=== PATIENT | male | born 1970 | race Caucasian/White ===

== ENCOUNTER 2017-11-14 21:17 | Inpatient (IN) | payer MEDICAID ==
[~2017-11-14] VITALS: Ht 190.5 cm; Wt 104.5 kg
[~2017-11-14 21:17] MED LIST: METF500T PO; METF500T3 PO; ONDA4TAB6 PO; PANT40TA4 PO; RANI300T7 PO; temazepam 15mg capsule PO PRN
[2017-11-14] MEDS ORDERED: normal saline 1000ml 1,000 ML IV ONE (21:37)
[2017-11-14] MEDS ORDERED: normal saline 1000ML IV soln IVB ONE ×2 (21:40→22:45)
[2017-11-14 22:16] LABS: ABG HCO3 27.2 mmol/L (22.0-26.0); ABG OXYGEN SATURATION 94.7 % (95-98); ABG PCO2 (T) 35.9 mmHg (35.0-48.0); ABG PH (T) 7.495 (7.350-7.450); ALLEN'S TEST Positive; FCOHb 0.1 % (0.5-1.5); FMetHb 0.2 % (0.3-1.12); FO2Hb 94.4 % (94-100); PATIENT TEMPERATURE 36.5; RESPIRATORY RATE (OBSERVED) 16 b/min; TOTAL HEMOGLOBIN 19.3 G/dl (14.0-18.0)
[2017-11-14 22:44] LABS: BASOPHILS % (AUTO) 0.1 % (0-1); EOSINOPHILS % (AUTO) 0.1 % (0-6); HEMATOCRIT 56.2 % (42.0-52.0); LYMPHOCYTES % (AUTO) 11.3 % (21-51); MEAN CORPUSCULAR HGB CONC 33.6 % (33.0-36.5); MEAN CORPUSCULAR VOLUME 86.3 FL (78-98); MEAN PLATELET VOLUME 8.2 FL (7.4-10.4); MONOCYTES # (AUTO) 0.3 X10'3 (0-0.9); NEUTROPHILS # (AUTO) 7.3 X10'3 (1.8-7.7); NEUTROPHILS % (AUTO) 84.5 % (42-75); PLATELET COUNT 289 X10'3 (140-440); RED BLOOD COUNT 6.51 X10'6 (4.70-6.10); RED CELL DISTRIBUTION WIDTH 13.1 % (11.5-14.5); WHITE BLOOD COUNT 8.6 X10'3 (4.5-11.0)
[2017-11-14 22:45] LABS: HEMOGLOBIN 18.9 g/dl (14.0-17.9)
[2017-11-14] MEDS ORDERED: morphine 2 MG/ML inj. syringe IV ONE (22:45)
[2017-11-14] MEDS ORDERED: LORazepam 2 mg/ml vial IV ONE ×2 (22:45→23:30)
[2017-11-14 22:49] LABS: CLARITY,URINE CLEAR (Clear); GLUCOSE, URINE 250 mg/dl (Neg); KETONES,URINE 40 mg/dl (Neg); LEUKOCYTE ESTERASE ,URINE NEGATIVE (Neg); NITRITES, URINE NEGATIVE (Neg); OCCULT BLOOD,URINE NEGATIVE (Neg); PROTEIN,URINE 100 mg/dl (Neg)
[2017-11-14] MEDS ORDERED: morphine 5 MG/ML injection IV ONE (22:50)
[2017-11-14 22:58] LABS: COLOR,URINE DARK YELLOW (Yellow); UA COLLECTION TYPE CLN CATCH MIDSTREAM
[2017-11-14 23:02] LABS: ALANINE AMINOTRANSFERASE 35 U/L (12-78); ALBUMIN 3.8 G/DL (3.4-5.0); ALBUMIN/GLOBULIN RATIO 0.7 (1.1-1.5); ALKALINE PHOSPHATASE 173 IU/L (46-116); ANION GAP 12 (8-16); BILIRUBIN,TOTAL 1.4 MG/DL (0.1-1.0); BLOOD UREA NITROGEN 31 MG/DL (7-18); BUN/CREATININE RATIO 19.4 (5.4-32.0); CALCIUM 9.5 MG/DL (8.5-10.1); CHLORIDE 92 MMOL/L (99-107); GLUCOSE 316 MG/DL (70-104); MAGNESIUM 1.6 MG/DL (1.5-2.4); SODIUM 135 MMOL/L (135-145); TOTAL CARBON DIOXIDE 31.5 MMOL/L (24-32); TOTAL PROTEIN 8.9 G/DL (6.4-8.2); eGFR 46 ML/MIN
[2017-11-14 23:03] LABS: ASPARTATE AMINO TRANSFERASE 26 U/L (10-37); ETHANOL < 0.010 GM/DL (0.0-0.010); POTASSIUM 4.2 MMOL/L (3.5-5.1)
[2017-11-14 23:03] LABS: URINE AMPHETAMINE SCREEN POSITIVE (Neg); URINE BARBITUATE SCREEN NEGATIVE (Neg); URINE BENZODIAZEPINES SCREEN NEGATIVE (Neg); URINE CANNABINOID SCREEN POSITIVE (Neg); URINE COCAINE SCREEN NEGATIVE (Neg); URINE METHADONE SCREEN NEGATIVE (Neg); URINE OPIATE SCREEN NEGATIVE (Neg); URINE PHENCYCLIDINE SCREEN NEGATIVE (Neg)
[2017-11-14 23:06] LABS: BACTERIA,URINE FEW /HPF (Neg); MUCUS STRANDS MANY /LPF (Neg); RBC,URINE 0-2 /HPF (0-2); SQUAMOUS EPITHELIAL CELL,UR FEW /LPF (FEW); WBC,URINE NONE SEEN /HPF (0-4); YEAST FEW /HPF (NEGATIVE)
[2017-11-14] MEDS ORDERED: normal saline 1000ML IV soln IV ONE (23:30)
[2017-11-14 23:31] LABS: PARTIAL THROMBOPLASTIN TIME 23 SECONDS (22-32); PROTHROMBIN TIME 10.4 SECONDS (9.0-12.0)
[2017-11-14] MEDS ORDERED: potassium Cl 20 mEq SR tablet PO PRN ×2 (23:40)
[2017-11-14] MEDS ORDERED: potassium Cl 40MEQ/NS 500ml 500 ML IV PRN ×2 (23:40)
[2017-11-14] MEDS ORDERED: acetaminophen 325mg tablet PO PRN (23:40)
[2017-11-14] MEDS ORDERED: magnesium hydroxide 30ml (MOM) UD suspension PO PRN (23:40)
[2017-11-14] MEDS ORDERED: magnesium 2GM in 50ml NS 50 ML IV PRN (23:40)
[2017-11-14] MEDS ORDERED: mag hydrox/Alum hydrox/simeth 30ml oral suspension PO PRN (23:40)
[2017-11-14] MEDS ORDERED: pantoprazole 40 MG vial IV ONE (23:40)
[2017-11-14] MEDS ORDERED: magnesium 4gm in 100ml NS 100 ML IV PRN (23:40)
[2017-11-14 23:49] LABS: GASTRIC OCCULT BLOOD POSITIVE (Neg)
[2017-11-15 00:18] LABS: HEMOGLOBIN A1C 7.6 % (4.5-6.2)
[2017-11-15] MEDS: pantoprazole 40MG/NS 100ML BAG 100 ML IV SCH ×6 (00:52→23:22)
[2017-11-15] MEDS: normal saline 1000ml 1,000 ML IV SCH ×3 (00:52→23:22)
[2017-11-15 03:00] VITALS: BP 123/88
[2017-11-15 06:00] VITALS: BP 112/75
[2017-11-15 06:05] LABS: BASOPHILS % (AUTO) 0.1 % (0-1); EOSINOPHILS % (AUTO) 0.4 % (0-6); HEMOGLOBIN 16.2 g/dl (14.0-17.9); LYMPHOCYTES # (AUTO) 0.5 X10'3 (1.1-4.8); LYMPHOCYTES % (AUTO) 7.2 % (21-51); MEAN CORPUSCULAR HEMOGLOBIN 29.8 PG (27.0-31.0); MEAN CORPUSCULAR HGB CONC 35.2 % (33.0-36.5); MEAN CORPUSCULAR VOLUME 84.6 FL (78-98); MEAN PLATELET VOLUME 8.5 FL (7.4-10.4); MONOCYTES # (AUTO) 0.5 X10'3 (0-0.9); MONOCYTES % (AUTO) 7.6 % (2-12); NEUTROPHILS # (AUTO) 5.8 X10'3 (1.8-7.7); NEUTROPHILS % (AUTO) 84.7 % (42-75); PLATELET COUNT 249 X10'3 (140-440); RED BLOOD COUNT 5.43 X10'6 (4.70-6.10); RED CELL DISTRIBUTION WIDTH 13.7 % (11.5-14.5); WHITE BLOOD COUNT 6.9 X10'3 (4.5-11.0)
[2017-11-15 07:24] LABS: ALANINE AMINOTRANSFERASE 27 U/L (12-78); ALBUMIN 2.6 G/DL (3.4-5.0); ALBUMIN/GLOBULIN RATIO 0.7 (1.1-1.5); ALKALINE PHOSPHATASE 112 IU/L (46-116); ANION GAP 13 (8-16); ASPARTATE AMINO TRANSFERASE 16 U/L (10-37); BILIRUBIN,TOTAL 1.3 MG/DL (0.1-1.0); BLOOD UREA NITROGEN 28 MG/DL (7-18); BUN/CREATININE RATIO 25.5 (5.4-32.0); CALCIUM 7.9 MG/DL (8.5-10.1); CHLORIDE 101 MMOL/L (99-107); GLUCOSE 241 MG/DL (70-104); MAGNESIUM 1.3 MG/DL (1.5-2.4); SODIUM 138 MMOL/L (135-145); TOTAL PROTEIN 6.6 G/DL (6.4-8.2); eGFR 71 ML/MIN
[2017-11-15] MEDS ORDERED: pantoprazole 40mg Tablet.DR PO SCH (08:00)
[2017-11-15] MEDS ORDERED: RANITIDINE HCL 300 MG PO SCH (08:00)
[2017-11-15] MEDS ORDERED: oseltamivir phos 75mg capsule PO SCH (08:00)
[2017-11-15 08:04] LABS: MICROCYTOSIS 1+; PLATELET ESTIMATE NORMAL; TOTAL CELLS COUNTED 100
[2017-11-15] MEDS: famotidine 20mg tablet PO SCH (08:24)
[2017-11-15] MEDS: heparin, porcine 5000 units/ml vial SQ SCH ×2 (08:25→19:09)
[2017-11-15] MEDS: K and/or MAG REPLACEMENT MC SCH (08:38)
[2017-11-15] MEDS ORDERED: MESSAGE TO PHARMACY PO ONE (08:45)
[2017-11-15] MEDS ORDERED: glucagon, human recombinant 1mg kit SUBCUT PRN (08:45)
[2017-11-15] MEDS ORDERED: dextrose ORAL solution 15 GM/59 ML bottle PO PRN ×2 (08:45)
[2017-11-15] MEDS ORDERED: dextrose 50%-water 50ml dispensing syringe IV PRN ×2 (08:45)
[2017-11-15] MEDS: magnesium Cl slow-release 64mg tablet PO PRN ×2 (09:11→21:27)
[2017-11-15] MEDS: insulin Lispro (HumaLOG) vial - multi-dose SQ SCH ×3 (09:15→19:04)
[2017-11-15] MEDS: HYDROcodone/acetaminophen 5mg/325mg tablet PO PRN (10:00)
[2017-11-15 11:00] VITALS: BP 138/90
[2017-11-15 14:24] LABS: BASOPHILS % (AUTO) 0.1 % (0-1); EOSINOPHILS % (AUTO) 0 % (0-6); HEMATOCRIT 48.1 % (42.0-52.0); HEMOGLOBIN 16.3 g/dl (14.0-17.9); LYMPHOCYTES # (AUTO) 0.7 X10'3 (1.1-4.8); LYMPHOCYTES % (AUTO) 7.2 % (21-51); MEAN CORPUSCULAR HEMOGLOBIN 29.1 PG (27.0-31.0); MEAN CORPUSCULAR HGB CONC 33.8 % (33.0-36.5); MEAN CORPUSCULAR VOLUME 86.3 FL (78-98); MEAN PLATELET VOLUME 8.3 FL (7.4-10.4); MONOCYTES # (AUTO) 0.3 X10'3 (0-0.9); MONOCYTES % (AUTO) 3.2 % (2-12); NEUTROPHILS # (AUTO) 8.8 X10'3 (1.8-7.7); NEUTROPHILS % (AUTO) 89.5 % (42-75); PLATELET COUNT 245 X10'3 (140-440); RED BLOOD COUNT 5.58 X10'6 (4.70-6.10); RED CELL DISTRIBUTION WIDTH 13.9 % (11.5-14.5); WHITE BLOOD COUNT 9.8 X10'3 (4.5-11.0)
[2017-11-15 15:00] VITALS: BP 136/87
[2017-11-15 18:30] VITALS: BP 121/84
[2017-11-15] MEDS: ondansetron/PF 4mg/2ml inj IV PRN (19:09)
[2017-11-15] MEDS ORDERED: insulin glargine (Lantus) pen - multi-dose SQ SCH (21:00)
[2017-11-15 22:00] VITALS: BP 122/78
[2017-11-16 02:00] VITALS: BP 125/80
[2017-11-16] MEDS: ondansetron/PF 4mg/2ml inj IV PRN (02:54)
[2017-11-16] MEDS: HYDROcodone/acetaminophen 5mg/325mg tablet PO PRN ×2 (03:01→10:50)
[2017-11-16] MEDS: pantoprazole 40MG/NS 100ML BAG 100 ML IV SCH ×2 (05:04→11:00)
[2017-11-16 06:00] VITALS: BP 125/86
[2017-11-16 06:04] LABS: BASOPHILS % (AUTO) 0.2 % (0-1); EOSINOPHILS # (AUTO) 0.2 X10'3 (0-0.9); EOSINOPHILS % (AUTO) 1.6 % (0-6); HEMATOCRIT 41.1 % (42.0-52.0); HEMOGLOBIN 14.2 g/dl (14.0-17.9); LYMPHOCYTES # (AUTO) 0.7 X10'3 (1.1-4.8); LYMPHOCYTES % (AUTO) 6.1 % (21-51); MEAN CORPUSCULAR HEMOGLOBIN 29.7 PG (27.0-31.0); MEAN CORPUSCULAR HGB CONC 34.6 % (33.0-36.5); MEAN CORPUSCULAR VOLUME 85.8 FL (78-98); MEAN PLATELET VOLUME 8.6 FL (7.4-10.4); MONOCYTES # (AUTO) 0.9 X10'3 (0-0.9); MONOCYTES % (AUTO) 7.3 % (2-12); NEUTROPHILS # (AUTO) 10.4 X10'3 (1.8-7.7); NEUTROPHILS % (AUTO) 84.8 % (42-75); PLATELET COUNT 205 X10'3 (140-440); RED BLOOD COUNT 4.79 X10'6 (4.70-6.10); RED CELL DISTRIBUTION WIDTH 13.5 % (11.5-14.5); WHITE BLOOD COUNT 12.3 X10'3 (4.5-11.0)
[2017-11-16 06:30] LABS: ALANINE AMINOTRANSFERASE 16 U/L (12-78); ALBUMIN 1.9 G/DL (3.4-5.0); ALBUMIN/GLOBULIN RATIO 0.5 (1.1-1.5); ALKALINE PHOSPHATASE 83 IU/L (46-116); ANION GAP 9 (8-16); ASPARTATE AMINO TRANSFERASE 13 U/L (10-37); BLOOD UREA NITROGEN 21 MG/DL (7-18); CALCIUM 7.9 MG/DL (8.5-10.1); CHLORIDE 100 MMOL/L (99-107); GLUCOSE 188 MG/DL (70-104); MAGNESIUM 1.7 MG/DL (1.5-2.4); POTASSIUM 4.7 MMOL/L (3.5-5.1); SODIUM 133 MMOL/L (135-145); TOTAL PROTEIN 5.8 G/DL (6.4-8.2); eGFR 80 ML/MIN
[2017-11-16] MEDS: K and/or MAG REPLACEMENT MC SCH (08:00)
[2017-11-16] MEDS: heparin, porcine 5000 units/ml vial SQ SCH (08:20)
[2017-11-16] MEDS: famotidine 20mg tablet PO SCH (08:21)
[2017-11-16] MEDS: insulin Lispro (HumaLOG) vial - multi-dose SQ SCH (08:26)
[2017-11-16] MEDS ORDERED: METR500T4 PO (10:23)
[2017-11-16 11:00] VITALS: BP 124/82
[2017-11-16] MEDS ORDERED: METO25TA6 PO (12:09)
== END 2017-11-16 13:39 | disposition home or self-care (01) | DRG 253 ==
LOC: ER 21:18 → ED HOLD 23:38 → PCU 3S 11-15 02:30
PROVIDERS: ADMIT Internal Medicine; ATTEND Internal Medicine
DX: K92.2 Gastrointestinal hemorrhage, unspecified (principal); N17.9 Acute kidney failure, unspecified; E87.2 Acidosis; D75.1 Secondary polycythemia; E11.65 Type 2 diabetes mellitus with hyperglycemia; K52.9 Noninfective gastroenteritis and colitis, unspecified; E86.0 Dehydration; F15.10 Other stimulant abuse, uncomplicated; K21.9 Gastro-esophageal reflux disease without esophagitis; Z88.0 Allergy status to penicillin; Z79.84 Long term (current) use of oral hypoglycemic drugs; Z79.899 Other long term (current) drug therapy; Z87.891 Personal history of nicotine dependence; Z83.3 Family history of diabetes mellitus
CPT/HCPCS: 36415; 36600; 71045; 80053; 80305; 80320; 81001; 82271; 82803; 82948; 83036; 83605; 83690; 83735; 83874; 84145; 84443; 84484; 85018; 85025; 85610; 85730; 87040; 87070; 87502; 87503; 93005; 96361; 96374; 96375; 99291; C9113; J1644; J1815; J2060; J2405; J7030

== ENCOUNTER 2017-12-18 11:03 | Outpatient (CLI) | payer MEDICAID ==
[~2017-12-18 11:03] MED LIST changes: +GLIM1TAB46 PO; +LEVO500T2 PO; -METF500T PO; -ONDA4TAB6 PO; -PANT40TA4 PO; +PER10325T PO; -RANI300T7 PO; -temazepam 15mg capsule PO PRN
== END 2017-12-18 23:59 | disposition home or self-care (01) ==
LOC: RAD 11:03 → CAR 23:59
PROVIDERS: ATTEND Surgery
DX: R94.31 Abnormal electrocardiogram [ECG] [EKG] (principal); I48.91 Unspecified atrial fibrillation; R00.0 Tachycardia, unspecified
CPT/HCPCS: 93005

== ENCOUNTER 2018-11-25 15:45 | Emergency (ER) | payer MEDICAID ==
[~2018-11-25] VITALS: Ht 190.5 cm; Wt 102.9 kg
[~2018-11-25 15:45] MED LIST changes: -LEVO500T2 PO
[2018-11-25 16:22] VITALS: BP 124/87
[2018-11-25 16:52] LABS: BASOPHILS % (AUTO) 0 % (0-1); EOSINOPHILS % (AUTO) 0 % (0-6); HEMATOCRIT 37.4 % (42.0-52.0); HEMOGLOBIN 12.4 g/dl (14.0-17.9); LYMPHOCYTES # (AUTO) 1.6 X10'3 (1.1-4.8); LYMPHOCYTES % (AUTO) 9.6 % (21-51); MEAN CORPUSCULAR HEMOGLOBIN 27.3 PG (27.0-31.0); MEAN CORPUSCULAR HGB CONC 33.2 g/dL (33.0-36.5); MEAN CORPUSCULAR VOLUME 82.1 FL (78-98); MONOCYTES # (AUTO) 0.4 X10'3 (0-0.9); MONOCYTES % (AUTO) 2.1 % (2-12); NEUTROPHILS # (AUTO) 15.1 X10'3 (1.8-7.7); NEUTROPHILS % (AUTO) 88.3 % (42-75); PLATELET COUNT 408 X10'3 (140-440); RED BLOOD COUNT 4.56 X10'6 (4.70-6.10); RED CELL DISTRIBUTION WIDTH 14.9 % (11.5-14.5); WHITE BLOOD COUNT 17.1 X10'3 (4.5-11.0)
[2018-11-25 17:06] LABS: ALANINE AMINOTRANSFERASE 18 U/L (12-78); ALBUMIN 2.4 G/DL (3.4-5.0); ALBUMIN/GLOBULIN RATIO 0.4 (1.1-1.5); ALKALINE PHOSPHATASE 171 IU/L (46-116); ANION GAP 14 (8-16); ASPARTATE AMINO TRANSFERASE 16 U/L (10-37); BILIRUBIN,TOTAL 0.4 MG/DL (0.1-1.0); BLOOD UREA NITROGEN 15 MG/DL (7-18); BUN/CREATININE RATIO 13.8 (5.4-32.0); CALCIUM 9.3 MG/DL (8.5-10.1); CHLORIDE 91 MMOL/L (99-107); CREATININE 1.09 MG/DL (0.60-1.10); GLUCOSE 388 MG/DL (70-104); POTASSIUM 3.8 MMOL/L (3.5-5.1); SODIUM 128 MMOL/L (135-145); TOTAL CARBON DIOXIDE 22.7 MMOL/L (24-32); TOTAL PROTEIN 8.8 G/DL (6.4-8.2); eGFR 72 ML/MIN
[2018-11-25] MEDS ORDERED: NAPR-56 PO (18:08)
[2018-11-25] MEDS ORDERED: LIDO700A32 TP (18:08)
[2018-11-25 18:22] LABS: ETHANOL < 0.010 GM/DL (0.0-0.010); LIPASE 149 U/L (73-393)
== END 2018-11-25 18:17 | disposition home or self-care (01) ==
LOC: ER 15:45
DX: R07.89 Other chest pain (principal); R07.81 Pleurodynia; E11.9 Type 2 diabetes mellitus without complications; F15.90 Other stimulant use, unspecified, uncomplicated; Z88.0 Allergy status to penicillin
CPT/HCPCS: 36415; 71045; 80053; 80320; 83690; 85025; 93005; 99284

== ENCOUNTER 2018-12-02 19:05 | Emergency (ER) | payer MEDICAID ==
[~2018-12-02] VITALS: Ht 190.5 cm; Wt 109.0 kg
[~2018-12-02 19:05] MED LIST changes: +LIDO700A32 TP; +NAPR-56 PO
[2018-12-02 19:54] LABS: BASOPHILS % (AUTO) 0.4 % (0-1); EOSINOPHILS # (AUTO) 0.1 X10'3 (0-0.9); EOSINOPHILS % (AUTO) 0.5 % (0-6); HEMATOCRIT 34.5 % (42.0-52.0); HEMOGLOBIN 11.3 g/dl (14.0-17.9); LYMPHOCYTES # (AUTO) 1.4 X10'3 (1.1-4.8); LYMPHOCYTES % (AUTO) 12.3 % (21-51); MEAN CORPUSCULAR HEMOGLOBIN 26.5 PG (27.0-31.0); MEAN CORPUSCULAR HGB CONC 32.8 g/dL (33.0-36.5); MEAN CORPUSCULAR VOLUME 80.9 FL (78-98); MEAN PLATELET VOLUME 7.3 FL (7.4-10.4); MONOCYTES # (AUTO) 0.9 X10'3 (0-0.9); MONOCYTES % (AUTO) 7.8 % (2-12); NEUTROPHILS # (AUTO) 9.1 X10'3 (1.8-7.7); PLATELET COUNT 530 X10'3 (140-440); RED BLOOD COUNT 4.27 X10'6 (4.70-6.10); RED CELL DISTRIBUTION WIDTH 15.3 % (11.5-14.5); WHITE BLOOD COUNT 11.5 X10'3 (4.5-11.0)
[2018-12-02] MEDS ORDERED: GLYB1.253 PO (20:33)
[2018-12-02] MEDS ORDERED: LISI-600 PO (20:33)
[2018-12-02] MEDS ORDERED: METF500T PO (20:33)
[2018-12-02 20:43] LABS: ALANINE AMINOTRANSFERASE 22 U/L (12-78); ALBUMIN 2.1 G/DL (3.4-5.0); ALBUMIN/GLOBULIN RATIO 0.4 (1.1-1.5); ALKALINE PHOSPHATASE 156 IU/L (46-116); ANION GAP 14 (8-16); ASPARTATE AMINO TRANSFERASE 21 U/L (10-37); BILIRUBIN,TOTAL 0.3 MG/DL (0.1-1.0); BLOOD UREA NITROGEN 19 MG/DL (7-18); BUN/CREATININE RATIO 17.6 (5.4-32.0); CALCIUM 8.2 MG/DL (8.5-10.1); CHLORIDE 95 MMOL/L (99-107); CREATININE 1.08 MG/DL (0.60-1.10); GLUCOSE 338 MG/DL (70-104); POTASSIUM 3.7 MMOL/L (3.5-5.1); SODIUM 131 MMOL/L (135-145); TOTAL CARBON DIOXIDE 22.4 MMOL/L (24-32); TOTAL PROTEIN 7.7 G/DL (6.4-8.2); eGFR 73 ML/MIN
[2018-12-02] MEDS ORDERED: PRED20TA PO (21:13)
[2018-12-02] MEDS ORDERED: GUAI120015 PO (21:13)
[2018-12-02] MEDS ORDERED: ALBU6.7H INH (21:13)
[2018-12-02 21:26] VITALS: BP 125/64
== END 2018-12-02 21:27 | disposition home or self-care (01) ==
LOC: ER 19:06
DX: R07.89 Other chest pain (principal); E11.9 Type 2 diabetes mellitus without complications; F15.10 Other stimulant abuse, uncomplicated; Z72.89 Other problems related to lifestyle; Z88.0 Allergy status to penicillin; Z98.890 Other specified postprocedural states
CPT/HCPCS: 36415; 71045; 80053; 85025; 93005; 99284

== ENCOUNTER 2019-04-14 13:45 | Inpatient (IN) | payer MEDICAID ==
[~2019-04-14] VITALS: Ht 190.5 cm; Wt 100.0 kg
[~2019-04-14 13:45] MED LIST changes: +ALBU6.7H INH; -GLIM1TAB46 PO; +GLYB1.253 PO; +GUAI120015 PO; -LIDO700A32 TP; +LISI-600 PO; +METF500T PO; -METF500T3 PO; -NAPR-56 PO; -PER10325T PO
--- NOTE | 2019-04-14 14:10 | NUR ---
CD ROM FROM I STICKERED AND HANDED TO ANAHI IN RADIOLOGY FOR UPLOADING AND "REREADING TO SEE IF CT WITH CONTRAST IS NECESSARY" PER DR GUARDADO
--- NOTE | 2019-04-14 14:40 | NUR ---
PT NPO SIGN HUNG OUTSIDE THE DOOR EDUCATED PATIENT AND FAMILY ABOUT NOTHING BY MOUTH
[2019-04-14 15:13] LABS: ALANINE AMINOTRANSFERASE 45 U/L (12-78); ALBUMIN 2.8 G/DL (3.4-5.0); ALBUMIN/GLOBULIN RATIO 0.5 (1.1-1.5); ALKALINE PHOSPHATASE 154 IU/L (46-116); ANION GAP 5 (8-16); ASPARTATE AMINO TRANSFERASE 26 U/L (10-37); BILIRUBIN,TOTAL 0.2 MG/DL (0.1-1.0); BLOOD UREA NITROGEN 21 MG/DL (7-18); BUN/CREATININE RATIO 17.5 (5.4-32.0); CALCIUM 8.8 MG/DL (8.5-10.1); CHLORIDE 98 MMOL/L (99-107); MAGNESIUM 1.8 MG/DL (1.5-2.4); POTASSIUM 5.1 MMOL/L (3.5-5.1); SODIUM 128 MMOL/L (135-145); TOTAL CARBON DIOXIDE 25.3 MMOL/L (24-32); eGFR 64 ML/MIN
[2019-04-14 15:14] LABS: PARTIAL THROMBOPLASTIN TIME 30 SECONDS (22-32)
[2019-04-14 15:15] LABS: GLUCOSE 472 MG/DL (70-104)
--- NOTE | 2019-04-14 15:16 | NUR ---
DR GUARDADO AND PRIMARY RN KATHY INFORMED OF CRITCAL [id number]
[2019-04-14 15:20] LABS: BASOPHILS % (AUTO) 0.6 % (0-1); EOSINOPHILS # (AUTO) 0.2 X10'3 (0-0.9); HEMATOCRIT 38.5 % (42.0-52.0); HEMOGLOBIN 12.6 g/dl (14.0-17.9); LYMPHOCYTES # (AUTO) 1.6 X10'3 (1.1-4.8); LYMPHOCYTES % (AUTO) 20.3 % (21-51); MEAN CORPUSCULAR HEMOGLOBIN 26.9 PG (27.0-31.0); MEAN CORPUSCULAR HGB CONC 32.8 g/dL (33.0-36.5); MEAN PLATELET VOLUME 7.7 FL (7.4-10.4); MONOCYTES # (AUTO) 0.6 X10'3 (0-0.9); MONOCYTES % (AUTO) 7.3 % (2-12); NEUTROPHILS # (AUTO) 5.7 X10'3 (1.8-7.7); NEUTROPHILS % (AUTO) 69.8 % (42-75); PLATELET COUNT 242 X10'3 (140-440); WHITE BLOOD COUNT 8.1 X10'3 (4.5-11.0)
[2019-04-14] MEDS ORDERED: normal saline 1000ML IV soln IV ONE (15:20)
[2019-04-14] MEDS ORDERED: metroNIDAZOLE-Flagyl 500mg/NS 100 ML IV ONE (15:20)
[2019-04-14] MEDS ORDERED: levoFLOXACIN-Levaquin 750MG/D5 150 ML IV ONE (15:20)
--- NOTE | 2019-04-14 15:20 | NUR ---
TALKED TO DR GUARDADO REGARDING 3 LITERS OF FLUID ORDERED AND CRITICAL GLUCOSE; WOULD LIKE TO GIVE FLUID AND THEN RECHECK BLOOD SUGAR
[2019-04-14 15:27] LABS: CLARITY,URINE CLEAR (Clear); COLOR,URINE YELLOW (Yellow); GLUCOSE, URINE >=1000 mg/dl (Neg); KETONES,URINE NEGATIVE (Neg); LEUKOCYTE ESTERASE ,URINE NEGATIVE (Neg); NITRITES, URINE NEGATIVE (Neg); OCCULT BLOOD,URINE NEGATIVE (Neg); PH,URINE 5.5 (4.8-8.0); PROTEIN,URINE NEGATIVE (Neg); UROBILINOGEN,URINE 0.2 E.U/dL (0.2-1.0)
[2019-04-14 15:33] LABS: UA COLLECTION TYPE VOIDED
[2019-04-14 15:34] LABS: BACTERIA,URINE NONE SEEN /HPF (Neg); RBC,URINE NONE SEEN /HPF (0-2); SQUAMOUS EPITHELIAL CELL,UR NONE SEEN /LPF (FEW); WBC,URINE NONE SEEN /HPF (0-4)
[2019-04-14] MEDS ORDERED: insulin regular, human 10 units/0.1 ml syringe IV ONE (15:40)
[2019-04-14] MEDS ORDERED: METF500T7 PO (15:52)
[2019-04-14] MEDS ORDERED: ALBU18HF2 PO (15:52)
[2019-04-14] MEDS ORDERED: LIRA0.6P SQ (15:52)
[2019-04-14] MEDS ORDERED: GLIM4TAB79 PO (15:52)
[2019-04-14] MEDS ORDERED: BECL10.6 PO (15:52)
[2019-04-14 15:55] LABS: ETHANOL < 0.010 GM/DL (0.0-0.010)
[2019-04-14] MEDS ORDERED: potassium Cl 20 mEq SR tablet PO PRN ×2 (16:10)
[2019-04-14] MEDS ORDERED: levoFLOXACIN-Levaquin 750MG/D5 150 ML IV SCH (16:10)
[2019-04-14] MEDS ORDERED: ondansetron/PF 4mg/2ml inj IV PRN (16:10)
[2019-04-14] MEDS ORDERED: acetaminophen 325mg tablet PO PRN (16:10)
[2019-04-14] MEDS ORDERED: morphine 2 MG/ML inj. syringe IV PRN (16:10)
[2019-04-14] MEDS ORDERED: magnesium 2GM in 50ml NS 50 ML IV PRN (16:10)
[2019-04-14] MEDS ORDERED: potassium Cl 40MEQ/NS 500ml 500 ML IV PRN (16:10)
[2019-04-14] MEDS ORDERED: potassium CL 10mEq/100ml bag 100 ML IV PRN (16:10)
[2019-04-14] MEDS ORDERED: magnesium 4gm in 100ml NS 100 ML IV PRN (16:10)
[2019-04-14] MEDS ORDERED: magnesium Cl slow-release 64mg tablet PO PRN (16:10)
--- NOTE | 2019-04-14 16:21 | NUR ---
PATIENT ATTEMPTING TO PROVIDE CLEAN CATHCH URINE IN ROOM
[2019-04-14 16:41] LABS: URINE AMPHETAMINE SCREEN NEGATIVE (Neg); URINE BARBITUATE SCREEN NEGATIVE (Neg); URINE BENZODIAZEPINES SCREEN NEGATIVE (Neg); URINE CANNABINOID SCREEN NEGATIVE (Neg); URINE COCAINE SCREEN NEGATIVE (Neg); URINE METHADONE SCREEN NEGATIVE (Neg); URINE OPIATE SCREEN NEGATIVE (Neg); URINE PHENCYCLIDINE SCREEN NEGATIVE (Neg)
--- NOTE | 2019-04-14 16:41 | NUR ---
PATIENT BELONGING : TENNIS SHOES, SOCKS,PHONE zte, LOAN MANAGER, PANTS,BELT,SHIRT,WALLET WITH $102 COUNTED WITH PATIENT AND KATHY CASTILLO. PATIENT DECLINED LOCKING UP HIS MONTANEZ, EDUCATED HE CAN AT ANY TIME DURING HOSPITALIZATION. PATIENT STATED HE WAS GOING TO HAVE HIS MEDICATIONS GO HOME WITH SISTER OR GIRLFRIEND .
--- NOTE | 2019-04-14 19:00 | NUR ---
Received report from Zakia CASTILLO from ED will assess patient when he arrives. Will continue to monitor.
[2019-04-14 19:25] VITALS: BP 150/90
[2019-04-14] MEDS: normal saline 1000ml 1,000 ML IV SCH (21:12)
[2019-04-14] MEDS ORDERED: glucagon, human recombinant 1mg kit SUBCUT PRN (22:55)
[2019-04-14] MEDS ORDERED: MESSAGE TO PHARMACY PO ONE (22:55)
[2019-04-14] MEDS ORDERED: dextrose 50%-water 50ml dispensing syringe IV PRN ×2 (22:55)
[2019-04-14] MEDS ORDERED: dextrose ORAL solution 15 GM/59 ML bottle PO PRN ×2 (22:55)
[2019-04-15] VITALS: BP 129/78
[2019-04-15 05:32] LABS: ALBUMIN 2.5 G/DL (3.4-5.0); ANION GAP 6 (8-16); BLOOD UREA NITROGEN 17 MG/DL (7-18); BUN/CREATININE RATIO 19.3 (5.4-32.0); CALCIUM 9.2 MG/DL (8.5-10.1); CHLORIDE 103 MMOL/L (99-107); CREATININE 0.88 MG/DL (0.60-1.10); GLUCOSE 234 MG/DL (70-104); MAGNESIUM 1.9 MG/DL (1.5-2.4); POTASSIUM 4.1 MMOL/L (3.5-5.1); SODIUM 132 MMOL/L (135-145); TOTAL CARBON DIOXIDE 23.1 MMOL/L (24-32); eGFR > 90 ML/MIN
[2019-04-15 05:35] LABS: BASOPHILS % (AUTO) 0.5 % (0-1); EOSINOPHILS # (AUTO) 0.3 X10'3 (0-0.9); EOSINOPHILS % (AUTO) 2.8 % (0-6); HEMATOCRIT 37.3 % (42.0-52.0); HEMOGLOBIN 12.4 g/dl (14.0-17.9); LYMPHOCYTES # (AUTO) 2.4 X10'3 (1.1-4.8); LYMPHOCYTES % (AUTO) 26.1 % (21-51); MEAN CORPUSCULAR HEMOGLOBIN 27.3 PG (27.0-31.0); MEAN CORPUSCULAR HGB CONC 33.3 g/dL (33.0-36.5); MEAN CORPUSCULAR VOLUME 81.8 FL (78-98); MONOCYTES # (AUTO) 0.8 X10'3 (0-0.9); MONOCYTES % (AUTO) 8.9 % (2-12); NEUTROPHILS # (AUTO) 5.6 X10'3 (1.8-7.7); NEUTROPHILS % (AUTO) 61.7 % (42-75); PLATELET COUNT 234 X10'3 (140-440); RED BLOOD COUNT 4.56 X10'6 (4.70-6.10); RED CELL DISTRIBUTION WIDTH 15.7 % (11.5-14.5)
--- NOTE | 2019-04-15 06:35 | NUR ---
Problems reprioritized. Patient report given, questions answered & plan of care reviewed with Sandy CASTILLO. Patient sitting in bed resting
[2019-04-15 07:20] VITALS: BP 129/86
[2019-04-15] MEDS: K and/or MAG REPLACEMENT MC SCH (08:00)
--- NOTE | 2019-04-15 08:35 | NUR ---
Pt. states pink or white sputum, pt. chews tobacco. Spit this AM has brown chew in it so SHELBY actual sputum alone. Pt. states last episode of pink tinged sputum yesterday afternoon. Will provide with collection device to be able to assess at a later time. Pt. also states intermittent SOB but none at this moment. Addendum: 04/15/19 at 0840 by Sandy Hsu RN Amended: Links added.
[2019-04-15] MEDS: levoFLOXACIN-Levaquin 750MG/D5 150 ML IV SCH (08:43)
[2019-04-15] MEDS: insulin Lispro (HumaLOG) vial - multi-dose SQ SCH ×3 (08:57→19:20)
--- NOTE | 2019-04-15 09:06 | NUR ---
when preparing to administer insulin, pt. states, " Whatever you're about to give me, I better only have half of it. I am very sensitive to insulin." He also stated that he was told he could take his home diabetic medications here in the hospital, although protocol is ordered for him. made aware and she states no intention of the pt. taking his home diabetic medication here in the hospital and she is not sure who said told the pt. he could. She stated that for breakfast it was ok to cover the pt.'s BG but not nutritional intake and the reassess. [facility]. Will cont. to monitor on my shift.
--- NOTE | 2019-04-15 12:00 | NUR ---
GAVE REPORT TO ANEESH CASTILLO.
[2019-04-15] MEDS: metroNIDAZOLE-Flagyl 500mg/NS 100 ML IV SCH ×2 (15:53→23:59)
--- NOTE | 2019-04-15 16:44 | NUR ---
DM consult, A1C is 13.4, patient takes meformin and victoza at home. Pt seen at bedside states he just started taking new DM meds 5 days ago. Pt provided with written and verbal DM ed with referral to outpatient DM class and RD contact information. Pt presented to ED after found to have lung abscess, also received treatment for pneumonia. Has h/o meth. Pt currently on a heart healthy CHO controlled diet with documented 100% PO intake likely meeting nutrient needs. Pt reports still being hungry following meals and agrees to double protein TID, d/w dietary. [facility] 04/14. Will continue to follow. Recommend: 1. continue carb controlled, heart healthy diet 2. double protein TID 3. wt per rx Addendum: 04/15/19 at [address] Amended: Links added.
[2019-04-15 18:00] VITALS: BP 136/84
--- NOTE | 2019-04-15 18:40 | NUR ---
Problems reprioritized. Patient report given, questions answered & plan of care reviewed with MATHEW CASTILLO.
--- NOTE | 2019-04-15 18:47 | NUR ---
Patient in room [facility]. I have received report from Elena CASTILLO and had the opportunity to ask questions and assume patient care.
[2019-04-15] MEDS: famotidine 20mg tablet PO SCH (20:48)
[2019-04-15] MEDS: normal saline 1000ml 1,000 ML IV SCH (20:49)
[2019-04-15] MEDS: insulin glargine (Lantus) pen - multi-dose SQ SCH (20:58)
[2019-04-16 01:14] VITALS: BP 135/86
[2019-04-16 04:57] LABS: BASOPHILS # (AUTO) 0.1 X10'3 (0-0.2); BASOPHILS % (AUTO) 0.7 % (0-1); EOSINOPHILS # (AUTO) 0.2 X10'3 (0-0.9); EOSINOPHILS % (AUTO) 2.7 % (0-6); HEMATOCRIT 38.5 % (42.0-52.0); HEMOGLOBIN 12.9 g/dl (14.0-17.9); LYMPHOCYTES # (AUTO) 2.4 X10'3 (1.1-4.8); LYMPHOCYTES % (AUTO) 29.7 % (21-51); MEAN CORPUSCULAR HEMOGLOBIN 27.1 PG (27.0-31.0); MEAN CORPUSCULAR HGB CONC 33.6 g/dL (33.0-36.5); MEAN CORPUSCULAR VOLUME 80.6 FL (78-98); MEAN PLATELET VOLUME 7.4 FL (7.4-10.4); MONOCYTES # (AUTO) 0.7 X10'3 (0-0.9); MONOCYTES % (AUTO) 8.9 % (2-12); NEUTROPHILS # (AUTO) 4.7 X10'3 (1.8-7.7); PLATELET COUNT 246 X10'3 (140-440); RED BLOOD COUNT 4.78 X10'6 (4.70-6.10); RED CELL DISTRIBUTION WIDTH 15.7 % (11.5-14.5)
[2019-04-16 05:05] LABS: ALBUMIN 2.6 G/DL (3.4-5.0); ANION GAP 8 (8-16); BLOOD UREA NITROGEN 20 MG/DL (7-18); BUN/CREATININE RATIO 20.4 (5.4-32.0); CALCIUM 8.7 MG/DL (8.5-10.1); CHLORIDE 103 MMOL/L (99-107); CREATININE 0.98 MG/DL (0.60-1.10); GLUCOSE 196 MG/DL (70-104); MAGNESIUM 1.8 MG/DL (1.5-2.4); POTASSIUM 3.8 MMOL/L (3.5-5.1); SODIUM 135 MMOL/L (135-145); TOTAL CARBON DIOXIDE 24.2 MMOL/L (24-32); eGFR 81 ML/MIN
--- NOTE | 2019-04-16 06:24 | NUR ---
Problems reprioritized. Patient report given, questions answered & plan of care reviewed with Sandy CASTILLO.
[2019-04-16] MEDS: lactobacillus rhamnosus 10,000 MMU CELLS/CAPSULE PO SCH ×2 (07:46→20:00)
[2019-04-16] MEDS: K and/or MAG REPLACEMENT MC SCH (07:46)
[2019-04-16] MEDS: metroNIDAZOLE-Flagyl 500mg/NS 100 ML IV SCH ×3 (07:46→23:52)
[2019-04-16 07:55] VITALS: BP 117/80
--- NOTE | 2019-04-16 08:00 | NUR ---
When assessing pt. this AM found 2 bottles of non diet soda on the pt.'s bedside table as well as various junk foods. Attempted to educate pt. on diet. Pt. stated, "Don't lecture me. I have been given 3 of these diabetic packets and I'm tired of it! you people here are the ones who have messed up my A1C. It used to be below 6.0!" Tried to non-aggressively educate pt. about A1C lab, but he refused education stating, "I don't want to hear your lecture." again.
[2019-04-16] MEDS: insulin Lispro (HumaLOG) vial - multi-dose SQ SCH ×3 (08:20→18:25)
[2019-04-16] MEDS: levoFLOXACIN-Levaquin 750MG/D5 150 ML IV SCH (09:02)
[2019-04-16 11:42] VITALS: BP 119/79
[2019-04-16] MEDS: normal saline 1000ml 1,000 ML IV SCH ×2 (12:45→21:48)
[2019-04-16] MEDS ORDERED: metroNIDAZOLE 500mg tablet PO SCH (16:00)
--- NOTE | 2019-04-16 18:25 | NUR ---
Gave report to Piotr CASTILLO
--- NOTE | 2019-04-16 18:30 | NUR ---
Patient in room [facility]. I have received report from Sandy CASTILLO and had the opportunity to ask questions and assume patient care.
[2019-04-16 19:00] VITALS: BP 130/79
[2019-04-16] MEDS: famotidine 20mg tablet PO SCH (20:00)
[2019-04-16] MEDS: HYDROcodone/acetaminophen 5mg/325mg tablet PO PRN ×2 (20:04→23:53)
[2019-04-16] MEDS: insulin glargine (Lantus) pen - multi-dose SQ SCH (21:12)
[2019-04-16 23:00] VITALS: BP 130/79
[2019-04-17] VITALS: BP 128/82
[2019-04-17 04:44] LABS: BASOPHILS # (AUTO) 0.1 X10'3 (0-0.2); BASOPHILS % (AUTO) 0.7 % (0-1); EOSINOPHILS # (AUTO) 0.2 X10'3 (0-0.9); HEMATOCRIT 37.8 % (42.0-52.0); HEMOGLOBIN 12.7 g/dl (14.0-17.9); LYMPHOCYTES # (AUTO) 2.3 X10'3 (1.1-4.8); LYMPHOCYTES % (AUTO) 26.3 % (21-51); MEAN CORPUSCULAR HEMOGLOBIN 27.6 PG (27.0-31.0); MEAN CORPUSCULAR HGB CONC 33.6 g/dL (33.0-36.5); MEAN CORPUSCULAR VOLUME 82.1 FL (78-98); MEAN PLATELET VOLUME 7.3 FL (7.4-10.4); MONOCYTES # (AUTO) 0.8 X10'3 (0-0.9); MONOCYTES % (AUTO) 9.2 % (2-12); NEUTROPHILS # (AUTO) 5.3 X10'3 (1.8-7.7); NEUTROPHILS % (AUTO) 61.8 % (42-75); PLATELET COUNT 248 X10'3 (140-440); RED CELL DISTRIBUTION WIDTH 15.7 % (11.5-14.5); WHITE BLOOD COUNT 8.6 X10'3 (4.5-11.0)
[2019-04-17 04:48] LABS: ALBUMIN 2.5 G/DL (3.4-5.0); ANION GAP 7 (8-16); BLOOD UREA NITROGEN 24 MG/DL (7-18); BUN/CREATININE RATIO 23.1 (5.4-32.0); CALCIUM 8.4 MG/DL (8.5-10.1); CHLORIDE 103 MMOL/L (99-107); CREATININE 1.04 MG/DL (0.60-1.10); GLUCOSE 256 MG/DL (70-104); MAGNESIUM 1.9 MG/DL (1.5-2.4); POTASSIUM 4.1 MMOL/L (3.5-5.1); SODIUM 135 MMOL/L (135-145); TOTAL CARBON DIOXIDE 25.1 MMOL/L (24-32); eGFR 76 ML/MIN
--- NOTE | 2019-04-17 06:32 | NUR ---
Problems reprioritized. Patient report given, questions answered & plan of care reviewed with Amena CASTILLO.
[2019-04-17 07:00] VITALS: BP 119/76
[2019-04-17] MEDS: K and/or MAG REPLACEMENT MC SCH (08:00)
[2019-04-17] MEDS: insulin Lispro (HumaLOG) vial - multi-dose SQ SCH ×2 (08:54→18:46)
[2019-04-17] MEDS: metroNIDAZOLE-Flagyl 500mg/NS 100 ML IV SCH (08:55)
[2019-04-17] MEDS: levoFLOXACIN-Levaquin 750MG/D5 150 ML IV SCH (08:55)
[2019-04-17] MEDS: lactobacillus rhamnosus 10,000 MMU CELLS/CAPSULE PO SCH ×2 (08:55→20:15)
[2019-04-17] MEDS: HYDROcodone/acetaminophen 5mg/325mg tablet PO PRN ×3 (09:55→20:17)
[2019-04-17 11:00] VITALS: BP 118/81
[2019-04-17] MEDS ORDERED: levoFLOXACIN 750MG TABLET PO SCH (11:00)
[2019-04-17] MEDS: clindamycin-Cleocin 900mg/D5W 50 ML IV SCH (15:17)
[2019-04-17] MEDS ORDERED: CLINDAmcin 900mg/NS 50ml IVPB 50 ML IV SCH (16:00)
[2019-04-17] MEDS ORDERED: D5W IV SCH (16:00)
[2019-04-17] MEDS ORDERED: CLINDAMYCIN PHOSPHATE IV SCH (16:00)
--- NOTE | 2019-04-17 18:30 | NUR ---
Patient in room [facility]. I have received report from EBER CASTILLO and had the opportunity to ask questions and assume patient care.
[2019-04-17 20:00] VITALS: BP 126/84
[2019-04-17] MEDS: famotidine 20mg tablet PO SCH (20:15)
[2019-04-17] MEDS: normal saline 1000ml 1,000 ML IV SCH (20:18)
[2019-04-17] MEDS: insulin glargine (Lantus) pen - multi-dose SQ SCH (21:00)
[2019-04-18] VITALS: BP 124/84
[2019-04-18] MEDS: clindamycin-Cleocin 900mg/D5W 50 ML IV SCH ×3 (00:09→16:45)
[2019-04-18 05:10] LABS: BASOPHILS # (AUTO) 0.1 X10'3 (0-0.2); BASOPHILS % (AUTO) 0.7 % (0-1); EOSINOPHILS # (AUTO) 0.2 X10'3 (0-0.9); EOSINOPHILS % (AUTO) 2.6 % (0-6); HEMATOCRIT 38.1 % (42.0-52.0); HEMOGLOBIN 12.6 g/dl (14.0-17.9); LYMPHOCYTES # (AUTO) 2.3 X10'3 (1.1-4.8); LYMPHOCYTES % (AUTO) 28.3 % (21-51); MEAN CORPUSCULAR VOLUME 81.8 FL (78-98); MEAN PLATELET VOLUME 7.4 FL (7.4-10.4); MONOCYTES # (AUTO) 0.7 X10'3 (0-0.9); MONOCYTES % (AUTO) 9.1 % (2-12); NEUTROPHILS # (AUTO) 4.8 X10'3 (1.8-7.7); NEUTROPHILS % (AUTO) 59.3 % (42-75); PLATELET COUNT 242 X10'3 (140-440); RED BLOOD COUNT 4.65 X10'6 (4.70-6.10); RED CELL DISTRIBUTION WIDTH 16.2 % (11.5-14.5); WHITE BLOOD COUNT 8.1 X10'3 (4.5-11.0)
[2019-04-18 05:17] LABS: ALBUMIN 2.5 G/DL (3.4-5.0); ANION GAP 7 (8-16); BLOOD UREA NITROGEN 26 MG/DL (7-18); BUN/CREATININE RATIO 25.7 (5.4-32.0); CALCIUM 8.8 MG/DL (8.5-10.1); CHLORIDE 104 MMOL/L (99-107); CREATININE 1.01 MG/DL (0.60-1.10); GLUCOSE 193 MG/DL (70-104); MAGNESIUM 1.8 MG/DL (1.5-2.4); POTASSIUM 4.2 MMOL/L (3.5-5.1); SODIUM 135 MMOL/L (135-145); TOTAL CARBON DIOXIDE 24.3 MMOL/L (24-32); eGFR 78 ML/MIN
[2019-04-18] MEDS: HYDROcodone/acetaminophen 5mg/325mg tablet PO PRN ×3 (05:17→20:01)
--- NOTE | 2019-04-18 06:30 | NUR ---
Problems reprioritized. Patient report given, questions answered & plan of care reviewed with EBER CASTILLO.
[2019-04-18 07:00] VITALS: BP 133/88
[2019-04-18] MEDS: K and/or MAG REPLACEMENT MC SCH (08:00)
[2019-04-18] MEDS: insulin Lispro (HumaLOG) vial - multi-dose SQ SCH ×3 (08:29→19:59)
[2019-04-18] MEDS: levoFLOXACIN-Levaquin 750MG/D5 150 ML IV SCH (08:57)
[2019-04-18] MEDS: lactobacillus rhamnosus 10,000 MMU CELLS/CAPSULE PO SCH ×2 (09:04→20:01)
[2019-04-18 12:00] VITALS: BP 134/83
--- NOTE | 2019-04-18 18:30 | NUR ---
Patient in room [facility]. I have received report from EBER CASTILLO and had the opportunity to ask questions and assume patient care.
[2019-04-18 20:00] VITALS: BP 125/72
[2019-04-18] MEDS: famotidine 20mg tablet PO SCH (20:01)
[2019-04-18] MEDS: insulin glargine (Lantus) pen - multi-dose SQ SCH (22:38)
[2019-04-19] VITALS: BP 115/78
[2019-04-19] MEDS: normal saline 1000ml 1,000 ML IV SCH ×2 (00:24→23:38)
[2019-04-19] MEDS: clindamycin-Cleocin 900mg/D5W 50 ML IV SCH ×4 (00:24→23:38)
[2019-04-19 05:15] LABS: BASOPHILS # (AUTO) 0.1 X10'3 (0-0.2); BASOPHILS % (AUTO) 0.7 % (0-1); EOSINOPHILS # (AUTO) 0.3 X10'3 (0-0.9); EOSINOPHILS % (AUTO) 3.4 % (0-6); HEMATOCRIT 38.5 % (42.0-52.0); HEMOGLOBIN 12.6 g/dl (14.0-17.9); LYMPHOCYTES # (AUTO) 2.4 X10'3 (1.1-4.8); LYMPHOCYTES % (AUTO) 31.1 % (21-51); MEAN CORPUSCULAR HEMOGLOBIN 27.1 PG (27.0-31.0); MEAN CORPUSCULAR HGB CONC 32.8 g/dL (33.0-36.5); MEAN CORPUSCULAR VOLUME 82.6 FL (78-98); MEAN PLATELET VOLUME 7.4 FL (7.4-10.4); MONOCYTES # (AUTO) 0.8 X10'3 (0-0.9); MONOCYTES % (AUTO) 10.5 % (2-12); NEUTROPHILS # (AUTO) 4.2 X10'3 (1.8-7.7); NEUTROPHILS % (AUTO) 54.3 % (42-75); PLATELET COUNT 275 X10'3 (140-440); RED BLOOD COUNT 4.66 X10'6 (4.70-6.10); RED CELL DISTRIBUTION WIDTH 16.3 % (11.5-14.5); WHITE BLOOD COUNT 7.7 X10'3 (4.5-11.0)
[2019-04-19 05:27] LABS: ALBUMIN 2.6 G/DL (3.4-5.0); ANION GAP 7 (8-16); BLOOD UREA NITROGEN 21 MG/DL (7-18); BUN/CREATININE RATIO 20.8 (5.4-32.0); CALCIUM 8.3 MG/DL (8.5-10.1); CHLORIDE 104 MMOL/L (99-107); CREATININE 1.01 MG/DL (0.60-1.10); GLUCOSE 130 MG/DL (70-104); MAGNESIUM 1.8 MG/DL (1.5-2.4); POTASSIUM 4.3 MMOL/L (3.5-5.1); SODIUM 137 MMOL/L (135-145); TOTAL CARBON DIOXIDE 25.9 MMOL/L (24-32); eGFR 78 ML/MIN
--- NOTE | 2019-04-19 06:23 | NUR ---
Problems reprioritized. Patient report given, questions answered & plan of care reviewed with EBER CASTILLO.
[2019-04-19 07:00] VITALS: BP 95/60
[2019-04-19] MEDS: K and/or MAG REPLACEMENT MC SCH (08:00)
[2019-04-19] MEDS: lactobacillus rhamnosus 10,000 MMU CELLS/CAPSULE PO SCH ×2 (08:40→19:04)
[2019-04-19] MEDS: insulin Lispro (HumaLOG) vial - multi-dose SQ SCH ×3 (08:45→18:51)
[2019-04-19] MEDS: HYDROcodone/acetaminophen 5mg/325mg tablet PO PRN ×2 (08:45→21:26)
[2019-04-19 11:00] VITALS: BP 120/73
[2019-04-19] MEDS: levoFLOXACIN 750MG TABLET PO SCH (11:50)
[2019-04-19 18:00] VITALS: BP 112/66
--- NOTE | 2019-04-19 18:20 | NUR ---
Patient in room [facility]. I have received report from JONATHAN Beckwith and had the opportunity to ask questions and assume patient care.
[2019-04-19] MEDS: famotidine 20mg tablet PO SCH (21:26)
[2019-04-19] MEDS: insulin glargine (Lantus) pen - multi-dose SQ SCH (21:30)
[2019-04-19 23:57] VITALS: BP 115/70
[2019-04-20] MEDS: HYDROcodone/acetaminophen 5mg/325mg tablet PO PRN ×3 (00:59→16:08)
[2019-04-20] MEDS ORDERED: normal saline 1000ml 1,000 ML IV ONE (04:00)
[2019-04-20 05:14] LABS: BASOPHILS # (AUTO) 0.1 X10'3 (0-0.2); BASOPHILS % (AUTO) 0.7 % (0-1); EOSINOPHILS # (AUTO) 0.2 X10'3 (0-0.9); EOSINOPHILS % (AUTO) 2.8 % (0-6); HEMATOCRIT 37.7 % (42.0-52.0); HEMOGLOBIN 12.6 g/dl (14.0-17.9); LYMPHOCYTES # (AUTO) 1.9 X10'3 (1.1-4.8); LYMPHOCYTES % (AUTO) 22.1 % (21-51); MEAN CORPUSCULAR HGB CONC 33.5 g/dL (33.0-36.5); MEAN CORPUSCULAR VOLUME 80.8 FL (78-98); MEAN PLATELET VOLUME 7.5 FL (7.4-10.4); MONOCYTES # (AUTO) 0.8 X10'3 (0-0.9); MONOCYTES % (AUTO) 9.5 % (2-12); NEUTROPHILS # (AUTO) 5.5 X10'3 (1.8-7.7); NEUTROPHILS % (AUTO) 64.9 % (42-75); PLATELET COUNT 285 X10'3 (140-440); RED BLOOD COUNT 4.67 X10'6 (4.70-6.10); RED CELL DISTRIBUTION WIDTH 16.2 % (11.5-14.5); WHITE BLOOD COUNT 8.4 X10'3 (4.5-11.0)
[2019-04-20 06:25] LABS: ALBUMIN 2.6 G/DL (3.4-5.0); ANION GAP 9 (8-16); BLOOD UREA NITROGEN 21 MG/DL (7-18); BUN/CREATININE RATIO 20.8 (5.4-32.0); CALCIUM 8.4 MG/DL (8.5-10.1); CHLORIDE 101 MMOL/L (99-107); CREATININE 1.01 MG/DL (0.60-1.10); GLUCOSE 197 MG/DL (70-104); MAGNESIUM 1.7 MG/DL (1.5-2.4); POTASSIUM 4.4 MMOL/L (3.5-5.1); SODIUM 134 MMOL/L (135-145); eGFR 78 ML/MIN
--- NOTE | 2019-04-20 06:35 | NUR ---
Problems reprioritized. Patient report given, questions answered & plan of care reviewed with JONATHAN Causey.
--- NOTE | 2019-04-20 06:35 | NUR ---
Patient in room [facility]. I have received report from Ariela CASTILLO and had the opportunity to ask questions and assume patient care.
[2019-04-20 06:49] VITALS: BP 122/84
[2019-04-20] MEDS: clindamycin-Cleocin 900mg/D5W 50 ML IV SCH ×2 (07:16→16:08)
[2019-04-20] MEDS: lactobacillus rhamnosus 10,000 MMU CELLS/CAPSULE PO SCH ×2 (07:16→20:18)
[2019-04-20] MEDS ORDERED: iohexol 300mg/ml 100ml inj. ONE (07:22)
--- NOTE | 2019-04-20 07:27 | NUR ---
Patient off the unit to CT by WC with Asad Caldwell.
--- NOTE | 2019-04-20 07:49 | NUR ---
Patient back on the unit, up walking the halls
[2019-04-20] MEDS: K and/or MAG REPLACEMENT MC SCH (08:00)
--- NOTE | 2019-04-20 08:00 | NUR ---
Patient NPO for procedure, report received patient is brittle and reacts to insulin with hypoglycemia. Will not cover patient, will check BG at noon.
[2019-04-20] MEDS: levoFLOXACIN 750MG TABLET PO SCH (11:00)
--- NOTE | 2019-04-20 11:18 | NUR ---
Patient in shower, unable to give scheduled medication at 1100.
--- NOTE | 2019-04-20 12:03 | NUR ---
Patient took own BG 241, results charted.
[2019-04-20 14:40] VITALS: BP 144/90
[2019-04-20] MEDS ORDERED: LIDOcaine 1%/PF 5ML 10 MG/ML VIAL ONE (14:46)
[2019-04-20] MEDS ORDERED: fentaNYL/PF 50MCG/1 ML 2ML syringe ONE (14:46)
[2019-04-20 14:53] VITALS: BP 151/74
[2019-04-20] MEDS: insulin Lispro (HumaLOG) vial - multi-dose SQ SCH ×2 (16:41→20:52)
[2019-04-20] MEDS: normal saline 1000ml 1,000 ML IV SCH (16:42)
--- NOTE | 2019-04-20 18:05 | NUR ---
Patient in room [facility]. I have received report from Marium CASTILLO and had the opportunity to ask questions and assume patient care.
--- NOTE | 2019-04-20 18:42 | NUR ---
Patient found to be going in the restroom and shower with girlfriend. Dr. Lozada aware, drug screen ordered.
[2019-04-20 20:00] VITALS: BP 129/82
[2019-04-20] MEDS: famotidine 20mg tablet PO SCH (20:18)
[2019-04-20] MEDS: insulin glargine (Lantus) pen - multi-dose SQ SCH (20:50)
[2019-04-20] MEDS: HYDROcodone/acetaminophen 10/325mg tab PO PRN (20:56)
[2019-04-21] VITALS: BP 149/87
[2019-04-21] MEDS: clindamycin-Cleocin 900mg/D5W 50 ML IV SCH ×3 (00:02→16:47)
[2019-04-21 04:41] LABS: BASOPHILS # (AUTO) 0.1 X10'3 (0-0.2); BASOPHILS % (AUTO) 0.7 % (0-1); EOSINOPHILS # (AUTO) 0.3 X10'3 (0-0.9); EOSINOPHILS % (AUTO) 3.1 % (0-6); HEMATOCRIT 39.2 % (42.0-52.0); LYMPHOCYTES # (AUTO) 1.7 X10'3 (1.1-4.8); LYMPHOCYTES % (AUTO) 18.8 % (21-51); MEAN CORPUSCULAR HEMOGLOBIN 27.4 PG (27.0-31.0); MEAN CORPUSCULAR HGB CONC 33.3 g/dL (33.0-36.5); MEAN CORPUSCULAR VOLUME 82.3 FL (78-98); MEAN PLATELET VOLUME 7.1 FL (7.4-10.4); MONOCYTES # (AUTO) 0.9 X10'3 (0-0.9); MONOCYTES % (AUTO) 9.5 % (2-12); NEUTROPHILS # (AUTO) 6.1 X10'3 (1.8-7.7); NEUTROPHILS % (AUTO) 67.9 % (42-75); PLATELET COUNT 288 X10'3 (140-440); RED BLOOD COUNT 4.75 X10'6 (4.70-6.10); RED CELL DISTRIBUTION WIDTH 16.3 % (11.5-14.5); WHITE BLOOD COUNT 8.9 X10'3 (4.5-11.0)
[2019-04-21 04:57] LABS: ALBUMIN 2.8 G/DL (3.4-5.0); ANION GAP 8 (8-16); BLOOD UREA NITROGEN 23 MG/DL (7-18); BUN/CREATININE RATIO 20.4 (5.4-32.0); CALCIUM 9.2 MG/DL (8.5-10.1); CHLORIDE 101 MMOL/L (99-107); CREATININE 1.13 MG/DL (0.60-1.10); GLUCOSE 270 MG/DL (70-104); MAGNESIUM 1.5 MG/DL (1.5-2.4); POTASSIUM 4.2 MMOL/L (3.5-5.1); SODIUM 134 MMOL/L (135-145); TOTAL CARBON DIOXIDE 24.8 MMOL/L (24-32); eGFR 69 ML/MIN
[2019-04-21] MEDS: HYDROcodone/acetaminophen 10/325mg tab PO PRN ×3 (05:56→21:56)
[2019-04-21] MEDS: normal saline 1000ml 1,000 ML IV SCH (05:57)
--- NOTE | 2019-04-21 06:24 | NUR ---
Problems reprioritized. Patient report given, questions answered & plan of care reviewed with Marium CASTILLO.
--- NOTE | 2019-04-21 06:29 | NUR ---
Agree with care and charting observed by John Aguirre RN.
--- NOTE | 2019-04-21 06:49 | NUR ---
Patient in room [facility]. I have received report from Vonnie CASTILLO and had the opportunity to ask questions and assume patient care.
[2019-04-21 06:56] VITALS: BP 142/89
[2019-04-21] MEDS: lactobacillus rhamnosus 10,000 MMU CELLS/CAPSULE PO SCH ×2 (07:12→19:15)
[2019-04-21] MEDS: insulin Lispro (HumaLOG) vial - multi-dose SQ SCH ×3 (08:35→19:10)
[2019-04-21] MEDS: K and/or MAG REPLACEMENT MC SCH (08:44)
[2019-04-21] MEDS: levoFLOXACIN 750MG TABLET PO SCH (10:23)
--- NOTE | 2019-04-21 11:17 | NUR ---
Reassessment: Pt s/p CT which showed stable right middle lobe lung abscess, borderline lymphadenopathy at the subcarinal space per MD notes. Pt continues with 75-100% PO intake on heart healthy CHO controlled diet with double protein TID meeting nutrient needs. [facility] 04/20. Will continue to follow. Recommend: 1. continue carb controlled, heart healthy diet 2. double protein TID 3. wt per rx Addendum: 04/21/19 at [address] Amended: Links added.
[2019-04-21 17:42] LABS: URINE AMPHETAMINE SCREEN POSITIVE (Neg); URINE BARBITUATE SCREEN NEGATIVE (Neg); URINE BENZODIAZEPINES SCREEN NEGATIVE (Neg); URINE CANNABINOID SCREEN NEGATIVE (Neg); URINE COCAINE SCREEN NEGATIVE (Neg); URINE METHADONE SCREEN NEGATIVE (Neg); URINE OPIATE SCREEN POSITIVE (Neg); URINE PHENCYCLIDINE SCREEN NEGATIVE (Neg)
--- NOTE | 2019-04-21 18:00 | NUR ---
Patient in room [facility]. I have received report from Marium CASTILLO and had the opportunity to ask questions and assume patient care.
--- NOTE | 2019-04-21 18:23 | NUR ---
Problems reprioritized. Patient report given, questions answered & plan of care reviewed with Derek CASTILLO.
[2019-04-21 20:00] VITALS: BP 139/81
[2019-04-21] MEDS ORDERED: normal saline 500ml IV soln 1,000 ML IV SCH (20:45)
[2019-04-21] MEDS: famotidine 20mg tablet PO SCH (21:47)
[2019-04-21] MEDS: insulin glargine (Lantus) pen - multi-dose SQ SCH (21:51)
[2019-04-22] VITALS: BP 109/67
[2019-04-22] MEDS: clindamycin-Cleocin 900mg/D5W 50 ML IV SCH ×3 (00:09→16:29)
[2019-04-22 05:03] LABS: BASOPHILS % (AUTO) 0.6 % (0-1); EOSINOPHILS # (AUTO) 0.4 X10'3 (0-0.9); EOSINOPHILS % (AUTO) 5.6 % (0-6); HEMATOCRIT 38.6 % (42.0-52.0); HEMOGLOBIN 12.7 g/dl (14.0-17.9); LYMPHOCYTES % (AUTO) 27.3 % (21-51); MEAN CORPUSCULAR HGB CONC 32.8 g/dL (33.0-36.5); MEAN CORPUSCULAR VOLUME 82.3 FL (78-98); MONOCYTES # (AUTO) 0.8 X10'3 (0-0.9); MONOCYTES % (AUTO) 10.2 % (2-12); NEUTROPHILS # (AUTO) 4.2 X10'3 (1.8-7.7); NEUTROPHILS % (AUTO) 56.3 % (42-75); PLATELET COUNT 280 X10'3 (140-440); RED CELL DISTRIBUTION WIDTH 15.9 % (11.5-14.5); WHITE BLOOD COUNT 7.5 X10'3 (4.5-11.0)
[2019-04-22 05:40] LABS: ALBUMIN 2.6 G/DL (3.4-5.0); ANION GAP 10 (8-16); BLOOD UREA NITROGEN 26 MG/DL (7-18); BUN/CREATININE RATIO 28.3 (5.4-32.0); CALCIUM 8.9 MG/DL (8.5-10.1); CHLORIDE 103 MMOL/L (99-107); CREATININE 0.92 MG/DL (0.60-1.10); GLUCOSE 190 MG/DL (70-104); POTASSIUM 4.2 MMOL/L (3.5-5.1); SODIUM 136 MMOL/L (135-145); TOTAL CARBON DIOXIDE 23.3 MMOL/L (24-32); eGFR 87 ML/MIN
--- NOTE | 2019-04-22 06:05 | NUR ---
Problems reprioritized. Patient report given, questions answered & plan of care reviewed with Marium CASTILLO.
--- NOTE | 2019-04-22 06:25 | NUR ---
Patient in room [facility]. I have received report from Vonnie CASTILLO and had the opportunity to ask questions and assume patient care.
--- NOTE | 2019-04-22 06:32 | NUR ---
Agree with care and charting observed by John Aguirre RN.
[2019-04-22 07:25] VITALS: BP 103/66
[2019-04-22] MEDS: lactobacillus rhamnosus 10,000 MMU CELLS/CAPSULE PO SCH ×2 (07:36→20:06)
--- NOTE | 2019-04-22 07:38 | NUR ---
Patient sleeping, aware that his lunch tray is on bedside table. Patient doesn't want to wake up to eat currently. Accu check taken and stable.
[2019-04-22] MEDS: K and/or MAG REPLACEMENT MC SCH (07:39)
[2019-04-22] MEDS: insulin Lispro (HumaLOG) vial - multi-dose SQ SCH ×2 (09:24→18:49)
--- NOTE | 2019-04-22 10:01 | NUR ---
Breakfast coverage later than 45 minutes do to patient eating late do to sleeping Addendum: 04/22/19 at 1002 by Marium Rey RN Amended: Links added.
[2019-04-22] MEDS: levoFLOXACIN 750MG TABLET PO SCH (11:59)
[2019-04-22] MEDS: HYDROcodone/acetaminophen 10/325mg tab PO PRN ×2 (12:02→20:06)
[2019-04-22 13:14] VITALS: BP 140/95
--- NOTE | 2019-04-22 18:00 | NUR ---
Patient in room [facility]. I have received report from Marium CASTILLO and had the opportunity to ask questions and assume patient care.
--- NOTE | 2019-04-22 18:18 | NUR ---
Problems reprioritized. Patient report given, questions answered & plan of care reviewed with WILMER CASTILLO.
[2019-04-22 20:00] VITALS: BP 129/79
[2019-04-22] MEDS: famotidine 20mg tablet PO SCH (20:06)
[2019-04-22] MEDS: insulin glargine (Lantus) pen - multi-dose SQ SCH (21:36)
[2019-04-23] VITALS: BP 153/95
[2019-04-23] MEDS: clindamycin-Cleocin 900mg/D5W 50 ML IV SCH ×4 (02:14→23:27)
[2019-04-23] MEDS: HYDROcodone/acetaminophen 10/325mg tab PO PRN ×3 (02:32→19:34)
[2019-04-23 04:47] LABS: BASOPHILS # (AUTO) 0.1 X10'3 (0-0.2); BASOPHILS % (AUTO) 0.9 % (0-1); EOSINOPHILS # (AUTO) 0.4 X10'3 (0-0.9); EOSINOPHILS % (AUTO) 4.8 % (0-6); HEMATOCRIT 40.6 % (42.0-52.0); HEMOGLOBIN 13.5 g/dl (14.0-17.9); LYMPHOCYTES # (AUTO) 2.5 X10'3 (1.1-4.8); LYMPHOCYTES % (AUTO) 29.5 % (21-51); MEAN CORPUSCULAR HEMOGLOBIN 27.2 PG (27.0-31.0); MEAN CORPUSCULAR HGB CONC 33.4 g/dL (33.0-36.5); MEAN CORPUSCULAR VOLUME 81.6 FL (78-98); MEAN PLATELET VOLUME 7.1 FL (7.4-10.4); MONOCYTES # (AUTO) 0.8 X10'3 (0-0.9); MONOCYTES % (AUTO) 9.6 % (2-12); NEUTROPHILS # (AUTO) 4.8 X10'3 (1.8-7.7); NEUTROPHILS % (AUTO) 55.2 % (42-75); PLATELET COUNT 299 X10'3 (140-440); RED BLOOD COUNT 4.97 X10'6 (4.70-6.10); RED CELL DISTRIBUTION WIDTH 16.3 % (11.5-14.5); WHITE BLOOD COUNT 8.6 X10'3 (4.5-11.0)
[2019-04-23 05:04] LABS: ALBUMIN 2.9 G/DL (3.4-5.0); ANION GAP 9 (8-16); BLOOD UREA NITROGEN 29 MG/DL (7-18); BUN/CREATININE RATIO 29.9 (5.4-32.0); CALCIUM 8.5 MG/DL (8.5-10.1); CHLORIDE 101 MMOL/L (99-107); CREATININE 0.97 MG/DL (0.60-1.10); GLUCOSE 260 MG/DL (70-104); POTASSIUM 4.2 MMOL/L (3.5-5.1); SODIUM 135 MMOL/L (135-145); TOTAL CARBON DIOXIDE 25.3 MMOL/L (24-32); eGFR 82 ML/MIN
--- NOTE | 2019-04-23 06:43 | NUR ---
Agree with care and charting observed by John Aguirre RN.
--- NOTE | 2019-04-23 06:52 | NUR ---
Problems reprioritized. Patient report given, questions answered & plan of care reviewed with Anuradha RN.
--- NOTE | 2019-04-23 06:55 | NUR ---
Patient in room [facility]. I have received report from JONATHAN Lopez and had the opportunity to ask questions and assume patient care.
[2019-04-23 07:02] VITALS: BP 133/84
[2019-04-23] MEDS: K and/or MAG REPLACEMENT MC SCH (08:00)
[2019-04-23] MEDS: lactobacillus rhamnosus 10,000 MMU CELLS/CAPSULE PO SCH ×2 (08:38→19:34)
[2019-04-23] MEDS: insulin Lispro (HumaLOG) vial - multi-dose SQ SCH ×3 (08:49→18:49)
--- NOTE | 2019-04-23 10:30 | NUR ---
Patients mother in room with him and patients girlfriend showed up on the floor. Per Report there has been a problem with patients girlfriend visiting on last visit and after girlfriend left patients tox screen came up positive. I asked patients mother to leave the room and I discussed with patient that if his girlfriend is here she can not go in the bathroom with him or use the bathroom in patients room, Also, advised patient can not be in the shower with girlfriend and he may not leave the floor. Patient is aware that girlfriend may not bring in any belongings. Patient was in agreement with this plan. I did advise patient and girlfriend if these rules were broken that she would no longer be allowed to visit. Patient and girlfriend verbalized understanding. Patients mother let girlfriend take belongings to her car and the mother also retrieved patients home medications from pharmacy and took them home for him. Patients girlfriend had a small plastic joint maker/ blow torch with her and that was taken and told her she could have it back when she leaves the facility.
[2019-04-23 11:00] VITALS: BP 142/92
[2019-04-23] MEDS: levoFLOXACIN 750MG TABLET PO SCH (11:45)
--- NOTE | 2019-04-23 12:39 | NUR ---
Patient in room [facility]. I have received report from JONATHAN Lopez and JONATHAN Shankar and had the opportunity to ask questions and assume patient care.
--- NOTE | 2019-04-23 13:58 | NUR ---
Didn't give patient any insulin because he refused. He originally was upset because I was going to give him one unit because his girlfriend ate part of his lunch, and he thought that wasn't enough. So I went off of what he said and added the 14 carbs he said he ate which would be 3 units; and then he refused. He said that he re-checked his sugar is was in the low 100's.
--- NOTE | 2019-04-23 17:00 | NUR ---
Patients girlfriend came back to the floor and PCT asked her for the grocery bag that she had because she can not take it into the room. PCT brought the bag to the nursing station which contained a bottle of alcohol and some tobacco chew. Security was called and they took grocery bag with contents and the installation coordinator/ blow torch patient had left earlier. We advised security that his girlfriend is no longer allowed on the floor. Security Hyde and Mike went in and spoke with the patient and girlfriend and the girlfriend left. Security was up here looking for the girlfriend because another employee had reported a suspicious person roaming around. Security has made note that she is not longer allowed on the floor and would be considered trespassing.
--- NOTE | 2019-04-23 18:28 | NUR ---
Problems reprioritized. Patient report given, questions answered & plan of care reviewed with JONATHAN Saldaña.
--- NOTE | 2019-04-23 18:30 | NUR ---
Patient in room [facility]. I have received report from Anuradha CASTILLO and had the opportunity to ask questions and assume patient care.
[2019-04-23 20:00] VITALS: BP 141/80
[2019-04-23] MEDS: famotidine 20mg tablet PO SCH (21:10)
[2019-04-23] MEDS: insulin glargine (Lantus) pen - multi-dose SQ SCH (21:16)
[2019-04-23 23:47] VITALS: BP 149/98
[2019-04-24] MEDS: HYDROcodone/acetaminophen 10/325mg tab PO PRN ×3 (04:38→19:52)
[2019-04-24] MEDS ORDERED: normal saline 1000ml 1,000 ML IV ONE (05:00)
[2019-04-24 05:09] LABS: BASOPHILS % (AUTO) 0.6 % (0-1); EOSINOPHILS # (AUTO) 0.3 X10'3 (0-0.9); EOSINOPHILS % (AUTO) 4.3 % (0-6); HEMATOCRIT 40.7 % (42.0-52.0); HEMOGLOBIN 13.4 g/dl (14.0-17.9); LYMPHOCYTES # (AUTO) 2.3 X10'3 (1.1-4.8); LYMPHOCYTES % (AUTO) 28.8 % (21-51); MEAN CORPUSCULAR HEMOGLOBIN 26.9 PG (27.0-31.0); MEAN CORPUSCULAR HGB CONC 32.9 g/dL (33.0-36.5); MEAN CORPUSCULAR VOLUME 81.8 FL (78-98); MEAN PLATELET VOLUME 7.1 FL (7.4-10.4); MONOCYTES # (AUTO) 0.7 X10'3 (0-0.9); MONOCYTES % (AUTO) 9.3 % (2-12); NEUTROPHILS # (AUTO) 4.5 X10'3 (1.8-7.7); PLATELET COUNT 284 X10'3 (140-440); RED BLOOD COUNT 4.98 X10'6 (4.70-6.10); RED CELL DISTRIBUTION WIDTH 16.3 % (11.5-14.5); WHITE BLOOD COUNT 7.9 X10'3 (4.5-11.0)
--- NOTE | 2019-04-24 05:14 | NUR ---
Patient found eating trail mix in room around 0430, reiterated to patient that he was supposed to be NPO for CT this AM from midnight and PT put away his food.
[2019-04-24 05:19] LABS: ANION GAP 8 (8-16); BLOOD UREA NITROGEN 25 MG/DL (7-18); BUN/CREATININE RATIO 26.3 (5.4-32.0); CALCIUM 9.2 MG/DL (8.5-10.1); CHLORIDE 103 MMOL/L (99-107); CREATININE 0.95 MG/DL (0.60-1.10); GLUCOSE 113 MG/DL (70-104); POTASSIUM 3.9 MMOL/L (3.5-5.1); SODIUM 137 MMOL/L (135-145); TOTAL CARBON DIOXIDE 25.7 MMOL/L (24-32); eGFR 84 ML/MIN
--- NOTE | 2019-04-24 05:32 | NUR ---
KILLIAN drain appears to have been displaced. Drain will no longer hold suction. Pt states that he "didn't try to pull on it", and that he does not know how it happened.
--- NOTE | 2019-04-24 06:35 | NUR ---
Problems reprioritized. Patient report given, questions answered & plan of care reviewed with ric garsia.
[2019-04-24 08:00] VITALS: BP 115/79
[2019-04-24] MEDS: K and/or MAG REPLACEMENT MC SCH (08:00)
[2019-04-24] MEDS ORDERED: iohexol 300mg/ml 100ml inj. ONE (08:34)
[2019-04-24] MEDS: lactobacillus rhamnosus 10,000 MMU CELLS/CAPSULE PO SCH ×2 (08:36→19:01)
[2019-04-24] MEDS: clindamycin-Cleocin 900mg/D5W 50 ML IV SCH ×2 (08:36→15:45)
[2019-04-24] MEDS: insulin Lispro (HumaLOG) vial - multi-dose SQ SCH ×2 (08:41→19:00)
[2019-04-24] MEDS: levoFLOXACIN 750MG TABLET PO SCH (11:12)
[2019-04-24 11:20] VITALS: BP 111/80
--- NOTE | 2019-04-24 14:04 | NUR ---
Pt. leaving floor at this time to go downstairs for a drainage placement.
[2019-04-24 14:21] VITALS: BP 115/78
[2019-04-24 14:29] VITALS: BP 124/71
--- NOTE | 2019-04-24 15:15 | NUR ---
PAGER ID: [phone] MESSAGE: [phone] Bill Tavares Can this pt. eat? If not can we change his fluids- pt. is diabetic. Sandy [phone]
[2019-04-24 18:00] VITALS: BP 152/81
--- NOTE | 2019-04-24 18:30 | NUR ---
Patient in room [facility]. I have received report from Sandy CASTILLO and had the opportunity to ask questions and assume patient care.
--- NOTE | 2019-04-24 18:39 | NUR ---
Gave report to Piotr CASTILLO
[2019-04-24] MEDS: famotidine 20mg tablet PO SCH (21:03)
[2019-04-24] MEDS: insulin glargine (Lantus) pen - multi-dose SQ SCH (21:04)
[2019-04-25] VITALS: BP 134/87
[2019-04-25] MEDS: clindamycin-Cleocin 900mg/D5W 50 ML IV SCH ×2 (00:03→08:55)
[2019-04-25] MEDS: HYDROcodone/acetaminophen 10/325mg tab PO PRN ×3 (00:04→14:30)
--- NOTE | 2019-04-25 06:33 | NUR ---
Problems reprioritized. Patient report given, questions answered & plan of care reviewed with Tsering CASTILLO.
--- NOTE | 2019-04-25 06:54 | NUR ---
Patient in room [facility]. I have received report from Piotr CASTILLO and had the opportunity to ask questions and assume patient care.
[2019-04-25 07:00] VITALS: BP 97/59
[2019-04-25] MEDS: K and/or MAG REPLACEMENT MC SCH (08:00)
[2019-04-25] MEDS: lactobacillus rhamnosus 10,000 MMU CELLS/CAPSULE PO SCH (08:55)
[2019-04-25] MEDS: insulin Lispro (HumaLOG) vial - multi-dose SQ SCH (09:04)
[2019-04-25 09:49] LABS: GLUCOSE 284 MG/DL (70-104)
[2019-04-25 09:50] LABS: ALBUMIN 2.8 G/DL (3.4-5.0); ANION GAP 9 (8-16); BLOOD UREA NITROGEN 22 MG/DL (7-18); BUN/CREATININE RATIO 22.4 (5.4-32.0); CALCIUM 8.4 MG/DL (8.5-10.1); CHLORIDE 100 MMOL/L (99-107); CREATININE 0.98 MG/DL (0.60-1.10); SODIUM 132 MMOL/L (135-145); TOTAL CARBON DIOXIDE 23.1 MMOL/L (24-32); eGFR 81 ML/MIN
[2019-04-25 10:10] LABS: BASOPHILS # (AUTO) 0.1 X10'3 (0-0.2); BASOPHILS % (AUTO) 0.7 % (0-1); EOSINOPHILS # (AUTO) 0.3 X10'3 (0-0.9); EOSINOPHILS % (AUTO) 3.4 % (0-6); HEMATOCRIT 39.5 % (42.0-52.0); HEMOGLOBIN 13.1 g/dl (14.0-17.9); LYMPHOCYTES # (AUTO) 1.8 X10'3 (1.1-4.8); LYMPHOCYTES % (AUTO) 23.7 % (21-51); MEAN CORPUSCULAR HGB CONC 33.1 g/dL (33.0-36.5); MEAN CORPUSCULAR VOLUME 81.8 FL (78-98); MEAN PLATELET VOLUME 7.3 FL (7.4-10.4); MONOCYTES # (AUTO) 0.8 X10'3 (0-0.9); MONOCYTES % (AUTO) 10.8 % (2-12); NEUTROPHILS # (AUTO) 4.8 X10'3 (1.8-7.7); NEUTROPHILS % (AUTO) 61.4 % (42-75); PLATELET COUNT 257 X10'3 (140-440); RED BLOOD COUNT 4.83 X10'6 (4.70-6.10); RED CELL DISTRIBUTION WIDTH 16.2 % (11.5-14.5); WHITE BLOOD COUNT 7.8 X10'3 (4.5-11.0)
[2019-04-25 11:00] VITALS: BP 129/91
[2019-04-25] MEDS ORDERED: CLIN-5 PO ×2 (11:59→16:53)
--- NOTE | 2019-04-25 15:27 | NUR ---
patient up and about not compliant with diabetic diet, found down in cafeteria ordering food. blood sugar 323. medicated, and instructed to follow diabetic diet . Dr Patel aware. All Dc instructions given to patient. Patient Dc home via private car in stable condition. Blood sugar had been rechecked and was 117. Dc home via private vehicle to home
--- NOTE | 2019-04-25 18:21 | NUR ---
Dr bauer called to give different order for clindamycin for patient. Adjustment called into [facility] in [place] but pharmacy was closed. message left. .
--- NOTE | 2019-04-25 18:27 | NUR ---
message left with farnaz matthews mother for clarification of clindamycin. to milk pickup driver at [facility] in [place].
== END 2019-04-25 15:00 | disposition home or self-care (01) | DRG 137 ==
LOC: ER 13:45 → SUR 3N 18:46 → CMPBEDREQ 20:07
PROVIDERS: ADMIT Internal Medicine; ATTEND Internal Medicine
PROC: 0F9030Z Drainage of Liver with Drainage Device, Percutaneous Approach (ICD-10-PCS; 2019-04-20)
PROC: BW241ZZ Computerized Tomography (CT Scan) of Chest and Abdomen using Low Osmolar Contrast (ICD-10-PCS; 2019-04-20)
PROC: 0F913ZZ Drainage of Right Lobe Liver, Percutaneous Approach (ICD-10-PCS; principal; 2019-04-24)
PROC: BW241ZZ Computerized Tomography (CT Scan) of Chest and Abdomen using Low Osmolar Contrast (ICD-10-PCS; 2019-04-24)
DX: J85.1 Abscess of lung with pneumonia (principal); K65.1 Peritoneal abscess; K75.0 Abscess of liver; E11.649 Type 2 diabetes mellitus with hypoglycemia without coma; Z83.3 Family history of diabetes mellitus; Z86.19 Personal history of other infectious and parasitic diseases; Z87.11 Personal history of peptic ulcer disease; Z88.0 Allergy status to penicillin; Z79.84 Long term (current) use of oral hypoglycemic drugs; Z79.899 Other long term (current) drug therapy
CPT/HCPCS: 10030; 36415; 49406; 71045; 71260; 80048; 80053; 80305; 80320; 81001; 82948; 83036; 83605; 83735; 84145; 85025; 85610; 85730; 87040; 87070; 87075; 87077; 87081; 87102; 87186; 93005; 93306; 96365; 96366; 96368; 99285; G0378; J1815; J1956; J3010; J3490; J7030; Q9967